=== PATIENT | female | born 1975 | race Caucasian/White ===

== ENCOUNTER 2017-04-01 19:22 | Emergency (ER) | payer MEDICAID ==
--- NOTE | 2017-04-01 19:56 | Emergency Department Record ---
History of Present Illness - General Chief complaint: ENT Stated complaint: DIFFICULTY SWALLOWING Time Seen by Provider: 04/01/17 19:42 Source: Patient Mode of Arrival: Ambulatory - History of Present Illness Initial comments: The patient states that she has a history of UTI's in the past and sees a kidney specialist because of frequent dark cloudy urine. She states she has had 2 ultrasounds of her kidneys and has a cyst that has remained unchanged in those 2 studies. She developed dysuria last 03-24-17, and went to her kidney doctor who geni bloodwork and obtained a UA. She then left for [place], began bactrim on Tuesday night 03-28-17. She develops a headache whenever she takes bactrim, which she currently has. She missed her bactrims yesterday, but took one this morning without problems Around 2 p.m. she noticed she was having dysphagia when she eats chicken, but has no problems with liquids or very soft food. This has never happened before. Onset/Timin -: Hour(s) Location: Throat Consistency: Constant Improves with: None Worsens with: Swallowing - Related Data Home Medications Medication Instructions Recorded Confirmed Last Taken Sulfamethoxazole/Trimethoprim 1 each PO BID 04/01/17 04/01/17 Unknown [Bactrim Ds Tablet] Allergies Allergy/AdvReac Type Severity Reaction Status Date / Time No Known Drug Allergies Allergy Verified 04/01/17 19:39 Travel Screening - Travel/Exposure Within Last 30 Days Have you traveled within the last 30 days?: No Review of Systems Reviewed: No additional complaints except as noted below Constitutional: Reports: As per HPI. Denies: Chills, Fever, Malaise, Night sweats, Weakness, Weight change Eyes: Reports: As per HPI. Denies: Eye discharge, Eye pain, Photophobia, Vision change ENT: Reports: As per HPI. Denies: Congestion, Dental pain, Ear pain, Epistaxis , Hearing loss, Throat pain Respiratory: Reports: As per HPI. Denies: Cough, Dyspnea, Hemoptysis, Stridor, Wheezes Cardiovascular: Reports: As per HPI. Denies: Arrhythmia, Chest pain, Dyspnea on exertion, Edema, Murmurs, Orthopnea, Palpitations, Paroxysmal nocturnal dyspnea, Rheumatic Fever, Syncope Endocrine: Reports: As per HPI. Denies: Fatigue, Heat or cold intolerance, Polydipsia, Polyuria Gastrointestinal: Reports: As per HPI. Denies: Abdominal pain, Constipation, Diarrhea, Hematemesis, Hematochezia, Melena, Nausea, Vomiting Genitourinary: Reports: As per HPI. Denies: Abnormal menses, Discharge, Dyspareunia, Dysuria, Frequency, Hematuria, Incontinence, Retention, Urgency Musculoskeletal: Reports: As per HPI. Denies: Arthralgia, Back pain, Gout, Joint swelling, Myalgia, Neck pain Skin: Reports: As per HPI. Denies: Bruising, Change in color, Change in hair/ nails, Lesions, Pruritus, Rash Neurological: Reports: As per HPI. Denies: Abnormal gait, Confusion, Headache, Numbness, Paresthesias, Seizure, Tingling, Tremors, Vertigo, Weakness Psychiatric: Reports: As per HPI. Denies: Anxiety, Auditory hallucinations, Depression, Homicidal thoughts, Suicidal thoughts, Visual hallucinations Hematological/Lymphatic: Reports: As per HPI. Denies: Anemia, Blood Clots, Easy bleeding, Easy bruising, Swollen glands Past Medical History - SOCIAL HISTORY Smoking Status: Never smoker Alcohol Use: None Drug Use: None - RESPIRATORY Hx Respiratory Disorders: No - CARDIOVASCULAR Hx Cardio Disorders: No - NEURO Hx Neuro Disorders: No - GI Hx GI Disorders: No - Hx Genitourinary Disorders: No - ENDOCRINE Hx Endocrine Disorders: No - MUSCULOSKELETAL Hx Musculoskeletal Disorders: No - PSYCH Hx Psych Problems: No - HEMATOLOGY/ONCOLOGY Hx Hematology/Oncology Disorders: No Family Medical History Any Significant Family History?: No Physical Exam - General General Appearance: Alert, Oriented x3, Cooperative, No acute distress (no stridor, drooling or change of voice, no hoarseness, "no FB sensation") - Head Head exam: Normal inspection - Eye Eye exam: Normal appearance, PERRL Pupils: Normal accommodation - ENT ENT exam: Normal exam, Mucous membranes moist, Normal external ear exam, Normal orophraynx, TM's normal bilaterally Ear exam: Normal external inspection. negative: External canal tenderness Nasal Exam: Normal inspection. negative: Discharge, Sinus tenderness Mouth exam: Normal external inspection, Tongue normal. negative: Drooling, Muffled voice, Tongue elevation, Trismus Teeth exam: Normal inspection. negative: Dental caries Throat exam: Normal inspection. negative: Tonsillar erythema, Tonsillomegaly, Tonsillar exudate, R peritonsillar mass, L peritonsillar mass - Neck Neck exam: Normal inspection, Full ROM, Other (normal swallow to palpation over anterior neck). negative: Lymphadenopathy, Meningismus, Tenderness, Thyromegaly - Respiratory Respiratory exam: Normal lung sounds bilaterally. negative: Chest wall tenderness, Respiratory distress - Cardiovascular Cardiovascular Exam: Regular rate, Normal rhythm, Normal heart sounds - GI/Abdominal GI/Abdominal exam: Soft, Normal bowel sounds. negative: Tenderness - Rectal Rectal exam: Deferred - exam: Deferred - Extremities Extremities exam: Normal inspection, Full ROM, Normal capillary refill. negative: Tenderness - Back Back exam: Reports: Normal inspection, Full ROM. Denies: CVA tenderness (R), CVA tenderness (L), Muscle spasm, Rash noted, Tenderness - Neurological Neurological exam: Alert, Normal gait, Oriented X3, Reflexes normal - Psychiatric Psychiatric exam: Normal affect (normal to slightly anxious as I converse with her, "are you sure this is not an allergic reaction?" ), Normal mood - Skin Skin exam: Dry, Intact, Normal color, Warm. negative: Rash, Urticaria Course Vital Signs 04/01/17 19:38 Temperature 98.4 F Pulse Rate [ 92 H Pulse Ox Probe] Respiratory 18 Rate Blood Pressure 128/89 [Left Arm] Pulse Ox 98 - Reevaluation(s) Reevaluation #1: Patient refuses benadryl because it makes her "feel funny." Old labs, old UA from last , and new labs tonight reviewed. Patient does not want to take any medication offered her, but was convinced to take an atarax pill when she gets home. She agrees to follow up with PCP Tuesday for recheck of dysphagia and repeat UA. Her UA from last had no bacteria present. Today's UA was normal except for blood, however patient is on her menses currently. 04/01/17 21:02 04/01/17 21:12 Medical Decision Making - Management Options MDM Management: No Additional Work-up Planned - Data Complexity MDM Data: Labs Ordered and/or Reviewed (All labs normal; UA with blod, however patient is finishing her menses and expected this.), X-Ray Ordered and/or Reviewed (Contrast CT soft tissue neck: No abnormality of naso-, hannah, or hypopharynx, small right thyroid nodule which does not meet criteria for bx. ), Decision to Obtain Old Record, Review and Summary of Old Record Discussed - Lab Data Result diagrams: 04/01/17 20:10 04/01/17 20:10 Disposition Disposition: Discharge Clinical Impression: Globus hystericus Dysphagia Qualifiers: Dysphagia type: unspecified Qualified Code(s): R13.10 - Dysphagia, unspecified Disposition: Home, Self-Care Condition: (1) Good Instructions: Dysphagia (ED) Additional Instructions: Home to rest. Discontinue bactrim. Take medication dispensed when you get home and go to bed. Follow up with PCP on Tuesday for recheck of dysphagia and repeat UA.
[2017-04-01 20:15] LABS: BASO % 0.7 % (0-6); EOS % 3.2 % (0-6); GRAN % 51.7 % (47-80); HEMATOCRIT 37.4 % (35.0-47.0); HEMOGLOBIN 12.5 gm/dl (11.6-16.0); LYMPH % 33.1 % (16-45); MEAN CELL VOLUME 94.7 fl (81-97); MEAN CORPUSCULAR HEMOGLOBIN 31.6 pg (27-33); MEAN CORPUSCULAR HGB CONC 33.4 g/dl (32-36); MEAN PLATELET VOLUME 9.2 fl (7.4-10.4); MONO % 11.3 % (0-9); PLATELET COUNT 390 K/uL (130-400); RED BLOOD COUNT 3.95 M/uL (3.80-5.40); RED CELL DISTRIBUTION WIDTH 12.7 % (11.5-14.5); WHITE BLOOD COUNT W/O DIFF 5.7 K/uL (4.2-12.2)
[2017-04-01 20:20] LABS: URINE APPEARANCE CLEAR; URINE BILIRUBIN NEGATIVE (NEGATIVE); URINE BLOOD LARGE (NEGATIVE); URINE COLOR YELLOW; URINE GLUCOSE (UA) NEGATIVE (NEGATIVE); URINE KETONE NEGATIVE (NEGATIVE); URINE LEUKOCYTE ESTERASE NEGATIVE (NEGATIVE); URINE NITRITE NEGATIVE (NEGATIVE); URINE PROTEIN NEGATIVE (NEGATIVE); URINE UROBILINOGEN 0.2 E.U./dL (0.20 - 1.00)
[2017-04-01 20:26] LABS: ANION GAP 9.9 (7-16); BLOOD UREA NITROGEN 11 mg/dL (7-17); CARBON DIOXIDE 26.1 mmol/L (22-30); EST GLOMERULAR FILTRATION RATE > 60 ml/min; GLUCOSE,RANDOM 94 mg/dL (70-110)
[2017-04-01 20:26] LABS: URINE BACTERIA NONE SEEN; URINE RBC 0 - 2 (NONE SEEN); URINE WBC NONE SEEN (0-2/hpf)
[2017-04-01] MEDS ORDERED: HYDROXYZINE PAMOATE 25 MG CAPSULE PO ONE (21:05)
--- NOTE | 2017-04-04 08:30 | CT SCAN REPORT ---
EXAM: CT OF THE NECK WITH IV CONTRAST HISTORY: DIFFICULTY SWALLOWING, PAINFUL SWALLOWING, POSTERIOR NECK PAIN. TECHNIQUE: Contiguous axial images from the skull base to the juanjose were obtained after the uneventful intravenous administration of 80 ml of Omnipaque 300. Comparison: None. FINDINGS: The skull base is unremarkable. The nasopharynx, oropharynx, and hypopharynx were unremarkable. The laryngeal structures are symmetric. The vascular structures are patent. The parotid glands and submandibular glands are unremarkable. Densely peripherally calcified nodule in the mid to lower right thyroid lobe measuring 12 mm. The lung apices are clear. Mild degenerative disk disease at C4-C5 and C5-C6. No lytic or blastic osseous lesion. IMPRESSION: 1. NO ACUTE PROCESS OF THE NECK IDENTIFIED. 2. DENSELY PERIPHERALLY CALCIFIED THYROID NODULE LOWER RIGHT THYROID LOBE WHICH DOES NOT MEET CRITERIA FOR BIOPSY. JOB NUMBER: [id number] MTDD
== END 2017-04-01 21:21 | disposition home or self-care (01) ==
LOC: ER 19:22
DX: F45.8 Other somatoform disorders (principal); M54.2 Cervicalgia; R13.10 Dysphagia, unspecified; R31.29 Other microscopic hematuria
CPT/HCPCS: 99283; 99284; 85025; 80048; 81001; 70491; Q9967